=== PATIENT | female | born 1985 | race Caucasian/White ===

== ENCOUNTER 2021-01-25 10:12 | Emergency (ER) | payer OTHER ==
[~2021-01-25] VITALS: Ht 172.7 cm; Wt 92.0 kg
[~2021-01-25 10:12] MED LIST: TYLENOL # 31 TA1 PO
[2021-01-25] MEDS ORDERED: LISINOPRIL10 MG PO (11:13)
[2021-01-25] MEDS ORDERED: HYDROCHLOROT12.5 MG PO (11:13)
[2021-01-25 13:02] VITALS: BP 127/83
== END 2021-01-25 13:02 | disposition home or self-care (01) | DRG 914 ==
LOC: ED 10:12
DX: S09.90XA Unspecified injury of head, initial encounter (principal); I10 Essential (primary) hypertension; F17.200 Nicotine dependence, unspecified, uncomplicated; V59.40XA Driver of pick-up truck or van injured in collision with unspecified motor vehicles in traffic accident, initial encounter